=== PATIENT | female | born 1970 | race Caucasian/White ===

== ENCOUNTER 2019-02-10 13:13 | Emergency (ER) | payer SELFPAY ==
--- NOTE | 2019-02-10 13:32 | ER Document Report ---
ED Medical Screen (RME) - General Chief Complaint: Abdominal Pain Stated Complaint: ABDOMINAL PAIN Time Seen by Provider: 02/10/19 13:30 Primary Care Provider: CELSA VENTURA MD [Primary Care Provider] - Follow up as needed Mode of Arrival: Ambulatory Information source: Patient Notes: 48-year-old female presented to ED for complaint of right lower quadrant/pelvic pain for last couple days. She states she had it for couple days and it got better and then about 45 minutes before coming in it came back again very sharp. She states she is on the end of her menstrual cycle. Denies any pain with intercourse or other discharge. He denies ever having this pain in the past. Denies any ovarian cyst or ectopic pregnancies. She says she was told this might be a kidney stone but she has no history of one. I have greeted and performed a rapid initial assessment of this patient. A comprehensive ED assessment and evaluation of the patient, analysis of test results and completion of medical decision making process will be conducted by an additional ED providers. - Related Data Allergies/Adverse Reactions: Penicillins Allergy (Verified 02/10/19 13:27) Physical Exam - Vital signs Vitals: Temp Pulse Resp BP Pulse Ox 97.7 F 70 20 123/74 100 02/10/19 13:20 02/10/19 13:20 02/10/19 13:20 02/10/19 13:20 02/10/19 13:20 Course - Vital Signs Vital signs: Temp Pulse Resp BP Pulse Ox 97.7 F 70 20 123/74 100 02/10/19 13:20 02/10/19 13:20 02/10/19 13:20 02/10/19 13:20 02/10/19 13:20 Doctor's Discharge - Discharge Referrals: CELSA VENTURA MD [Primary Care Provider] - Follow up as needed
[2019-02-10] MEDS ORDERED: KETOROLAC TROMETHAMINE INJ/PF 30 MG/1 ML SDV IV ONE (13:33)
[2019-02-10 13:42] LABS: ABSOLUTE BASOPHILS # (AUTO) 0.1 10^3/uL (0.0-0.2); ABSOLUTE EOSINOPHILS # (AUTO) 0.1 10^3/uL (0.0-0.6); ABSOLUTE LYMPHOCYTES (AUTO) 1.4 10^3/uL (0.5-4.7); ABSOLUTE MONOCYTES (AUTO) 0.6 10^3/uL (0.1-1.4); ABSOLUTE NEUT (AUTO) 5.9 10^3/uL (1.7-8.2); BASOPHILS % (AUTO) 0.9 % (0-2); EOSINOPHILS % (AUTO) 1.1 % (0-6); HEMATOCRIT 31.6 % (36.0-47.0); MEAN CORPUSCULAR HEMOGLOBIN 21.2 pg (27.0-33.4); MEAN CORPUSCULAR HGB CONC 31.5 g/dL (32.0-36.0); MEAN CORPUSCULAR VOLUME 67 fl (80-97); MONOCYTES % (AUTO) 7.3 % (3-13); PLATELET COUNT 436 10^3/uL (150-450); RED CELL DISTRIBUTION WIDTH 18.9 % (11.5-14.0); SEGMENTED NEUTROPHILS % (AUTO) 72.7 % (42-78); TOTAL CELLS COUNTED % (AUTO) 100 %; WHITE BLOOD COUNT 8.1 10^3/uL (4.0-10.5)
[2019-02-10 13:50] LABS: APPEARANCE,URINE CLEAR; BILIRUBIN,URINE NEGATIVE (NEGATIVE); COLOR,URINE STRAW; GLUCOSE, URINE NEGATIVE (NEGATIVE); KETONES,URINE NEGATIVE (NEGATIVE); LEUKOCYTE ESTERASE,URINE NEGATIVE (NEGATIVE); NITRITE,URINE NEGATIVE (NEGATIVE); PROTEIN,URINE NEGATIVE (NEGATIVE); URINE SPECIFIC GRAVITY 1.002; UROBILINOGEN,URINE NEGATIVE mg/dL (<2.0)
[2019-02-10 14:07] LABS: ALBUMIN 3.5 g/dL (3.5-5.0); ALKALINE PHOSPHATASE 56 U/L (38-126); ANION GAP 6 (5-19); ASPARTATE AMINO TRANSFERASE 15 U/L (14-36); BILIRUBIN,DIRECT 0.1 mg/dL (0.0-0.4); BILIRUBIN,TOTAL 0.5 mg/dL (0.2-1.3); BLOOD UREA NITROGEN 9 mg/dL (7-20); CALCIUM 8.2 mg/dL (8.4-10.2); CARBON DIOXIDE 23 mmol/L (22-30); CHLORIDE 111 mmol/L (98-107); GLUCOSE 76 mg/dL (75-110); TOTAL PROTEIN 6.4 g/dL (6.3-8.2)
--- NOTE | 2019-02-10 15:25 | ER Document Report ---
ED General - General Chief Complaint: Abdominal Pain Stated Complaint: ABDOMINAL PAIN Time Seen by Provider: 02/10/19 13:30 Primary Care Provider: [facility] [Provider Group] - Follow up in 1 week MICHAEL BAIRD MD [ACTIVE STAFF] - Follow up in 1 week Mode of Arrival: Ambulatory - HPI Notes: 48 year old female to the ED via EMS for c/o abd pain. Pt reports pain in her RLQ for the past 2 days that has progressively worsened and she describes it as stabbing pain with intermittent radiation to her back. Pt states pain worsened today in her R lower abdomen "coming in waves" without any back pain at this time, reports mild relief of pain when she presses on her abdomen. Denies fevers, chills, nausea, vomiting or any urinary complaints. - Related Data Allergies/Adverse Reactions: Penicillins Allergy (Verified 02/10/19 13:27) Past Medical History - General Information source: Patient - Social History Smoking Status: Current Every Day Smoker Frequency of alcohol use: None Drug Abuse: None Family History: Reviewed & Not Pertinent Patient has suicidal ideation: No Patient has homicidal ideation: No Past Surgical History: Reports: Hx Tonsillectomy - +adenoids, Hx Tubal Ligation Review of Systems - Review of Systems Constitutional: denies: Chills, Fever EENT: No symptoms reported Cardiovascular: denies: Chest pain, Palpitations, Dizziness, Lightheaded Respiratory: denies: Cough, Short of breath Gastrointestinal: See HPI, Abdominal pain. denies: Diarrhea, Nausea, Vomiting Genitourinary: No symptoms reported Female Genitourinary: No symptoms reported Musculoskeletal: No symptoms reported Skin: No symptoms reported Hematologic/Lymphatic: No symptoms reported Neurological/Psychological: No symptoms reported -: Yes All other systems reviewed and negative Physical Exam - Vital signs Vitals: Temp Pulse Resp BP Pulse Ox 97.7 F 70 20 123/74 100 02/10/19 13:20 02/10/19 13:20 02/10/19 13:20 02/10/19 13:20 02/10/19 13:20 Interpretation: Normal - General General appearance: Appears well, Alert - HEENT Head: Normocephalic, Atraumatic Eyes: Normal Pupils: PERRL - Respiratory Respiratory status: No respiratory distress Chest status: Nontender Breath sounds: Normal Chest palpation: Normal - Cardiovascular Rhythm: Regular Heart sounds: Normal auscultation Murmur: No - Abdominal Inspection: Normal Distension: No distension Bowel sounds: Normal Tenderness: Tender Notes: mild TTP over the right pelvic abdomen. no CVAT. no rebound, no guarding. - Back Back: Normal, Nontender. 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 She relates with further history that the pain actually started a week ago, got better, then got worse again. No leukocystosis. Did discuss appendicitis with patient. Low suspicion for appendicitis given her progression of symptoms. Did encourage patient to return in the next 8-24 hours if worsening pain, fevers, NV, anorexia. She agrees with the plan. 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 - Vital Signs Vital signs: Temp Pulse Resp BP Pulse Ox 97.9 F 62 18 129/70 H 100 02/10/19 16:32 02/10/19 16:32 02/10/19 16:32 02/10/19 16:32 02/10/19 16:32 - Laboratory Result Diagrams: 02/10/19 13:24 02/10/19 13:24 Laboratory results interpreted by me: 02/10/19 02/10/19 13:24 13:24 Hgb 10.0 L Hct 31.6 L MCV 67 L MCH 21.2 L MCHC 31.5 L RDW 18.9 H Chloride 111 H Calcium 8.2 L - Diagnostic Test Radiology reviewed: Image reviewed, Reports reviewed Discharge - Discharge Clinical Impression: Pelvic pain, Right ovarian cyst, Renal calculus Condition: Stable Disposition: HOME, SELF-CARE Instructions: Abdominal Pain ([facility]), Ovarian Cyst ([facility]) Additional Instructions: RETURN IMMEDIATELY IF ANY WORSENING PAIN, FEVERS, VOMITING, LOSS OF APPETITE. FOLLOW UP WITH PRIMARY CARE CLINIC. Prescriptions: Ketorolac Tromethamine [Toradol 10 mg Tablet] 10 mg PO Q8HP #15 tablet Hydrocodone/Acetaminophen [[place] 5-325 mg Tablet] 1 tab PO Q6H #9 tablet Forms: Return to Work Referrals: [facility] [Provider Group] - Follow up in 1 week MICHAEL BAIRD MD [ACTIVE STAFF] - Follow up in 1 week
--- NOTE | 2019-02-10 15:30 | RADIOLOGY REPORT (SQ) ---
EXAM DESCRIPTION: U/S NON-OB PELVIS TV W/O DOP COMPLETED DATE/TIME: 02/10/2019 3:05 pm REASON FOR STUDY: Right flank/pelvic pain COMPARISON: None. TECHNIQUE: Dynamic and static grayscale images acquired of the pelvis via transvaginal approach and recorded on PACS. Additional selected color Doppler and spectral images recorded. LIMITATIONS: None. FINDINGS: UTERUS: The uterus measures 9 x 6.5 x 4.6 cm. There is no myometrial mass. ENDOMETRIAL STRIPE: The endometrium measures 7.9 mm in thickness CERVIX: The cervix measures 2 cm in length. RIGHT OVARY AND DOPPLER: The right ovary measures 3 x 3 x 1.8 cm. There is a hypoechoic structure wi thin the right ovary that measures 1.6 x 1.4 x 1.1 cm ; on color Doppler the structure is avascular. LEFT OVARY AND DOPPLER: Unable to visualize the left ovary. There is no adnexal mass. FREE FLUID: None. OTHER: No other finding. IMPRESSION: 1. Normal endometrial thickness. 2. Cystic structure in the right ovary that measures 1.6 x 1.4 x 1.1 cm could represent a cyst or a follicle. 3. Non visualization of the left ovary. There is no adnexal mass. TECHNICAL DOCUMENTATION: JOB ID: [id number]- All Rights Reserved Rev Reading location - IP/workstation name: [email or web address]
--- NOTE | 2019-02-10 15:35 | RADIOLOGY REPORT (SQ) ---
EXAM DESCRIPTION: U/S RETROPERITON (RENAL/AORTA) COMPLETED DATE/TIME: 02/10/2019 3:05 pm REASON FOR STUDY: Right flank/pelvic pain COMPARISON: None. TECHNIQUE: Dynamic and static grayscale images acquired of the kidneys and bladder and recorded on P ACS. Additional selected color Doppler and spectral images recorded. LIMITATIONS: None. FINDINGS: RIGHT KIDNEY: The right kidney measures 10.8 cm in length. The corticomedullary different iation is maintained. There is no hydronephrosis, mass or calcification. LEFT KIDNEY: The left kidney measures 10.1 cm in length. There is a hypoechoic cystic structure wit hin the upper pole of the kidney that measures 2.2 x 2.1 x 2.4 cm in addition, there is also an echog enic structure in the kidney that measures 5 mm. There is no hydronephrosis. BLADDER: No masses. OTHER FINDINGS: No other finding. IMPRESSION: 1. Left renal cyst that measures 2.2 x 2.1 x 2.4 cm. 2. Left renal calculus that measures 5 mm. There is no associated hydronephrosis. TECHNICAL DOCUMENTATION: JOB ID: [id number]- All Rights Reserved Reading location - IP/workstation name: [email or web address]
[2019-02-10 16:34] VITALS: BP 129/70
== END 2019-02-10 16:34 | disposition home or self-care (01) ==
LOC: ER 13:13
DX: N83.201 Unspecified ovarian cyst, right side (principal); N20.0 Calculus of kidney; R10.2 Pelvic and perineal pain; R10.31 Right lower quadrant pain; F17.200 Nicotine dependence, unspecified, uncomplicated; Z88.0 Allergy status to penicillin
CPT/HCPCS: 99284; 96374; 36415; 83690; 85025; 81025; 80053; 81001; 76770; 76830; J1885